=== PATIENT | female | born 1995 | race Caucasian/White ===

== ENCOUNTER 2016-05-11 09:10 | Emergency (ER) | payer OTHER ==
[~2016-05-11] VITALS: Ht 157.5 cm; Wt 110.7 kg
[2016-05-11 09:18] VITALS: TEMP 36.6; Ht 157.5 cm; Wt 110.7 kg
[2016-05-11 10:22] LABS: BASO % 0.1 %; BASO ABS # 0.01 K/uL (0-0.2); COMPLETE YES; EOS % 1.3 %; HEMATOCRIT 41.7 % (37-47); IG% 0.1 %; LYMPH ABS # 2.56 K/uL (1.2-3.4); MEAN CELL VOLUME 81.6 fL (80-100); MEAN CORPUSCULAR HEMOGLOBIN 27.6 pg (25-34); MEAN CORPUSCULAR HGB CONC 33.8 g/dl (32-36); MEAN PLATELET VOLUME 10.5 fL (7.4-10.4); MONO % 6.7 %; NEUT % 60.8 %; PLATELET COUNT 332 K/uL (130-400); RED BLOOD COUNT 5.11 M/uL (4.2-5.4); WHITE BLOOD COUNT 8.27 K/uL (4.8-10.8)
[2016-05-11] MEDS ORDERED: MoRPHine SULFATE 10 MG/ML CARP/VIAL IV STA (10:22)
[2016-05-11] MEDS ORDERED: ONDANSETRON INJ 2 MG/ML 2 ML VIAL IV STA (10:22)
[2016-05-11] MEDS ORDERED: SODIUM CHLORIDE 0.9% 1000ML 1,000 ML IV STA (10:22)
[2016-05-11] MEDS ORDERED: CITA10TA8 PO (10:25)
[2016-05-11] MEDS ORDERED: LEVO125T4 PO (10:25)
[2016-05-11] MEDS ORDERED: BUSP15TA70 PO (10:25)
[2016-05-11 10:29] LABS: URINE APPEARANCE CLEAR (CLEAR); URINE BILIRUBIN NEG (NEG); URINE COLOR YELLOW; URINE EPITHELIAL CELL AUTO 20-30 /lpf (0-5); URINE NITRITE NEG (NEG); URINE SPECIFIC GRAVITY 1.014 (1.000-1.030); UROBILINOGEN NEG (NEG); ZZUR CULT IF INDIC CLEAN CATCH NO
[2016-05-11 10:34] LABS: MANUAL MICROSCOPIC REQUIRED? NO; REVIEW REQ? NO
[2016-05-11 10:43] LABS: BUN/CREATININE RATIO 12.1 (10-20); CALCIUM 8.9 mg/dl (8.5-10.1); CREATININE 0.81 mg/dl (0.60-1.20)
--- NOTE | 2016-05-11 12:59 | DIAGNOSTIC IMAGING REPORT ---
PELVIC ULTRASOUND CLINICAL HISTORY: Lower abdominal pain, cramping and bleeding. COMPARISON STUDY: None TECHNIQUE: Transabdominal and transvaginal sonography of the pelvis was performed. FINDINGS: The uterus measures 6.2 x 3.3 x 3.8 cm. The endometrium measures 4 mm in thickness. The right ovary measures 3.8 x 2.4 x 2.6 cm and the left measures 3.7 x 2 x 2.7 cm. Color flow is identified within each ovary. There was a small amount of fluid within the cul-de-sac. IMPRESSION: 1. Unremarkable sonographic appearance of the uterus and ovaries. 2. Trace fluid within the pelvis. Electronically signed by: Eric Lord M.D. 05/11/2016 12:57 PM
[2016-05-11 13:11] VITALS: BP 123/93; PULSE 62; O2SAT 98
--- NOTE | 2016-05-11 17:13 | EMERGENCY ROOM VISIT NOTE ---
History Report prepared by Franklin: Shana Sloan Under the Supervision of: Dr. Shiva Chapa D.O. First contact with patient: 09:50 Chief Complaint: ABDOMINAL PAIN Stated Complaint: CRAMPING LOWER BACK PAIN ABDOMINAL PAIN Nursing Triage Summary: Abd/low back pain and heavy vaginal bleeding x2 days, last period a few weeks ago, did not have a positive preg test, "I could be miscarrying. I was seen at [facility] 2 days ago and they didn't do anything." History of Present Illness The patient is a 20 year old female who presents to the Emergency Room with complaints of persistent cramping pains to her lower back and suprapubic region over the past 2 days. Currently her pain is worse on the right side, and she rates her discomfort as an 8/10. At the time of onset, the patient also began experiencing heavy vaginal bleeding, going through 1 tampon and 1 pad every hour. This lasted for about a day, but last evening it slowed down and she now has a minimal amount of dark red bleeding. Patient states that she is "2 weeks late for her period", but her last menstrual cycle was early last month. Patient told nursing staff that she "could be miscarrying", but she has not yet taken a test. The patient visited the [facility] ED for her symptoms but states that they were not able to draw blood and they did not do any additional testing before she left. However, as the cramping pains to her lower back and suprapelvic region have persisted, she came to the ED for further evaluation today. Pt denies headache, change in vision, fevers, chest pain, shortness of breath, nausea, vomiting, diarrhea, pain with urination, and melena. Source of History: patient Onset: over the past 2 days Position: abdomen, back (lower) Symptom Intensity: 8/10 Quality: cramping Timing: other (persistent) Associated Symptoms: No SOB, No abdominal pain, No chest pain, No fevers, No melena, No nausea, No urinary symptoms, No vomiting Note: Patient had heavy vaginal bleeding. Review of Systems See HPI for pertinent positives & negatives. A total of 10 systems reviewed and were otherwise negative. Past Medical & Surgical Medical Problems: (1) Depression Surgical Problems: (1) H/O thyroidectomy Social History Smoking Status: Never Smoker Marital Status: single Housing Status: lives with family Occupation Status: employed Current/Historical Medications Scheduled Buspirone Hcl (Buspar), 10 MG PO DAILY Citalopram Hydrobromide (Celexa), 5 MG PO DAILY Levothyroxine Sodium (Levothyroxine Sodium), 1 TAB PO DAILY Allergies Coded Allergies: Metoclopramide (Unverified Allergy, Intermediate, SENSORY SIDE EFFECTS, 05/11/16) Sertraline (Unverified Adverse Reaction, Severe, "ZOMBIE", 05/11/16) Trazodone (Unverified Adverse Reaction, Intermediate, NIGHTMARES, 05/11/16) Physical Exam Vital Signs Date Time Temp Pulse Resp B/P Pulse Ox O2 Delivery O2 Flow Rate FiO2 05/11/16 13:11 62 18 123/93 98 Room Air 05/11/16 10:54 58 16 144/78 99 Room Air 05/11/16 09:18 36.6 80 18 156/110 96 Room Air Physical Exam GENERAL: Patient is laying in bed, disheveled, no acute distress, nontoxic. EYE EXAM: normal conjunctiva. OROPHARYNX: no exudate, no erythema, lips, buccal mucosa, and tongue normal and mucous membranes are moist NECK: supple, no nuchal rigidity, no adenopathy, non-tender LUNGS: Clear to auscultation. Normal chest wall mechanics HEART: no murmurs, S1 normal and S2 normal ABDOMEN: abdomen soft, non-tender, normo-active bowel sounds, no masses, no rebound or guarding. BACK: Back is symmetrical on inspection and there is no deformity, no midline tenderness, no CVA tenderness. : Normal external genitalia. Normal vaginal mucosa. Small amount of dark blood in the vaginal vault. Os is closed. SKIN: no rashes and no bruising UPPER EXTREMITIES: upper extremities are grossly normal. LOWER EXTREMITIES: Scant pitting edema. NEURO EXAM: Normal sensorium, cranial nerves II-XII grossly intact, normal speech, no gross weakness of arms, no gross weakness of legs. Medical Decision & Procedures ER Provider Diagnostic Interpretation: US:Per my review, radiologist interpretation. PELVIC ULTRASOUND CLINICAL HISTORY: Lower abdominal pain, cramping and bleeding. COMPARISON STUDY: None TECHNIQUE: Transabdominal and transvaginal sonography of the pelvis was performed. FINDINGS: The uterus measures 6.2 x 3.3 x 3.8 cm. The endometrium measures 4 mm in thickness. The right ovary measures 3.8 x 2.4 x 2.6 cm and the left measures 3.7 x 2 x 2.7 cm. Color flow is identified within each ovary. There was a small amount of fluid within the cul-de-sac. IMPRESSION: 1. Unremarkable sonographic appearance of the uterus and ovaries. 2. Trace fluid within the pelvis. Electronically signed by: Eric Lord M.D. 05/11/2016 12:57 PM Laboratory Results 05/11/16 10:10 Red Blood Count 5.11, Mean Corpuscular Volume 81.6, Mean Corpuscular Hemoglobin 27.6, Mean Corpuscular Hemoglobin Concent 33.8, Mean Platelet Volume 10.5, Neutrophils (%) (Auto) 60.8, Lymphocytes (%) (Auto) 31.0, Monocytes (%) (Auto) 6.7, Eosinophils (%) (Auto) 1.3, Basophils (%) (Auto) 0.1, Neutrophils # (Auto) 5.03, Lymphocytes # (Auto) 2.56, Monocytes # (Auto) 0.55, Eosinophils # (Auto) 0.11, Basophils # (Auto) 0.01 05/11/16 10:10 Test 05/11/16 10:10 White Blood Count 8.27 K/uL (4.8-10.8) Red Blood Count 5.11 M/uL (4.2-5.4) Hemoglobin 14.1 g/dL (12.0-16.0) Hematocrit 41.7 % (37-47) Mean Corpuscular Volume 81.6 fL (80-100) Mean Corpuscular Hemoglobin 27.6 pg (25-34) Mean Corpuscular Hemoglobin Concent 33.8 g/dl (32-36) Platelet Count 332 K/uL (130-400) Mean Platelet Volume 10.5 fL (7.4-10.4) Neutrophils (%) (Auto) 60.8 % Lymphocytes (%) (Auto) 31.0 % Monocytes (%) (Auto) 6.7 % Eosinophils (%) (Auto) 1.3 % Basophils (%) (Auto) 0.1 % Neutrophils # (Auto) 5.03 K/uL (1.4-6.5) Lymphocytes # (Auto) 2.56 K/uL (1.2-3.4) Monocytes # (Auto) 0.55 K/uL (0.11-0.59) Eosinophils # (Auto) 0.11 K/uL (0-0.5) Basophils # (Auto) 0.01 K/uL (0-0.2) RDW Standard Deviation 40.7 fL (36.4-46.3) RDW Coefficient of Variation 13.6 % (11.5-14.5) Immature Granulocyte % (Auto) 0.1 % Immature Granulocyte # (Auto) 0.01 K/uL (0.00-0.02) Urine Color YELLOW Urine Appearance CLEAR (CLEAR) Urine pH 6.0 (4.5-7.5) Urine Specific [place] 1.014 (1.000-1.030) Urine Protein NEG (NEG) Urine Glucose (UA) NEG (NEG) Urine Ketones NEG (NEG) Urine Occult Blood 3+ (NEG) Urine Nitrite NEG (NEG) Urine Bilirubin NEG (NEG) Urine Urobilinogen NEG (NEG) Urine Leukocyte Esterase NEG (NEG) Urine WBC (Auto) 1-5 /hpf (0-5) Urine RBC (Auto) 10-30 /hpf (0-4) Urine Hyaline Casts (Auto) 0 /lpf (0-5) Urine Epithelial Cells (Auto) 20-30 /lpf (0-5) Urine Bacteria (Auto) NEG (NEG) Urine Test NEG (NEG) Anion Gap 8.0 mmol/L (3-11) Est Creatinine Clear Calc Drug Dose 129.0 ml/min Estimated GFR () 120.3 Estimated GFR (Non- 103.8 BUN/Creatinine Ratio 12.1 (10-20) Calcium Level 8.9 mg/dl (8.5-10.1) Total Bilirubin 0.5 mg/dl (0.2-1) Direct Bilirubin 0.1 mg/dl (0-0.2) Aspartate Amino Transf (AST/SGOT) 10 U/L (15-37) Alanine Aminotransferase (ALT/SGPT) 14 U/L (12-78) Alkaline Phosphatase 85 U/L (45-117) Total Protein 7.4 gm/dl (6.4-8.2) Albumin 4.0 gm/dl (3.4-5.0) Lipase 117 U/L (73-393) Laboratory results per my review. Medications Administered Medications (Trade) Dose Ordered Sig/Arsh Route Start Time Stop Time Status Last Admin Dose Admin Sodium Chloride (Nss 1000ml) 1,000 ml @ 999 mls/hr Q1H1M STAT IV 05/11/16 10:22 05/11/16 11:22 DC 05/11/16 10:55 999 MLS/HR Ondansetron HCl (Zofran Inj) 4 mg NOW STAT IV 05/11/16 10:22 05/11/16 10:24 DC 05/11/16 10:55 4 MG Morphine Sulfate (MoRPHine SULFATE INJ) 6 mg NOW STAT IV 05/11/16 10:22 05/11/16 10:24 DC 05/11/16 10:56 6 MG ED Course ED COURSE: Vital signs were reviewed and showed hypertension. The patients medical record was reviewed: Patient left AMA from the [facility] because they were unable to get blood work. She has an appointment scheduled with her PCP today. The above diagnostic studies were performed and reviewed. ED treatments and interventions as stated above. 1004: The patient was evaluated in room B8. A complete history and physical examination was performed. 1022: Morphine Sulfate 6 mg IV, Zofran 4 mg IV and NSS bolus IV were ordered. 1230: Patient went to US at this time. 1310: A pelvic exam was done at this time without significant results. 1320: I discussed my findings with the patient at this time. Discharge instructions were also discussed. She verbalized her understanding and agreement with the treatment plan, and she is now ready for disposition. Based on the patients age, coexisting illnesses, exam and lab findings the decision to treat as an outpatient was made. The patient remained stable while under my care. The patient appeared well at the time of discharge. Medical Decision Differential diagnoses includes but is not limited to appendicitis, diverticulitis, small bowel obstruction, malignancy, hernia, urinary tract infection, torsion, and ectopic (if female), perforation, trauma, infectious. Patient is a 20-year-old female who presents the ER for 2 days worth of vaginal bleeding and cramping in her lower back. She seen at [facility] but left AMA. She presents today with decreased vaginal bleeding and cramping. She notes she has only gone through 1 pad today. Previously she was going through a pad every hour. She is no other complaints at this time. was negative today and was negative yesterday. CBC shows a stable hemoglobin without significant leukocytosis. BMP along with LFTs, bilirubin and lipase were unremarkable. UA did have blood which I favor secondary to vaginal bleeding. Pelvic ultrasound was unremarkable. Pelvic exam shows a closed cervical os. Last normal menstrual period was early April and favor this is strictly dysfunctional uterine bleeding. Instructed a follow-up with her PCP. She has an appointment set for later today.Discussed with Pt concerning signs and symptoms to watch out for. Pt was instructed to follow up with their PCP and discussed with the patient their option to return to the ED at anytime for persistent or worsening symptoms. The appropriate anticipatory guidance and out- patient management, including indications for return to the emergency department , were explained at length to the patient and understood. Impression Primary Impression: Dysfunctional uterine bleeding Additional Impression: Abdominal cramping Scribe Attestation The scribe's documentation has been prepared under my direction and personally reviewed by me in its entirety. I confirm that the note above accurately reflects all work, treatment, procedures, and medical decision making performed by me. Departure Information Dispostion Home / Self-Care Referrals Dai Riley PA-C (PCP) Forms HOME CARE DOCUMENTATION FORM, IMPORTANT VISIT INFORMATION, My [facility] Patient Instructions A Signature Page Additional Instructions Please follow up with your primary care doctor with in the next 24 hours. Any worsening of your symptoms, please return to the ED immediately. This includes going through more than 1 pad an hour. Passing out, feeling lightheaded or dizzy, worsening pain, fevers greater than 100.4, or any other concerning signs or symptoms from your standpoint. Please take Motrin or Tylenol as needed for pain.
== END 2016-05-11 13:38 | disposition home or self-care (01) ==
LOC: C.EDB 09:14
DX: M54.5 Low back pain (principal); N93.8 Other specified abnormal uterine and vaginal bleeding; R10.9 Unspecified abdominal pain; F32.9 Major depressive disorder, single episode, unspecified; Z98.890 Other specified postprocedural states; Z88.8 Allergy status to other drugs, medicaments and biological substances

== ENCOUNTER 2016-06-27 09:11 | Emergency (ER) | payer OTHER ==
[~2016-06-27] VITALS: Ht 154.9 cm; Wt 112.0 kg
[~2016-06-27 09:11] MED LIST: BUSP15TA70 PO; CITA10TA8 PO; LEVO125T4 PO
[2016-06-27 09:13] VITALS: TEMP 36.5; Ht 154.9 cm; Wt 112.0 kg
[2016-06-27] MEDS ORDERED: CITA10TA8 PO (09:44)
[2016-06-27] MEDS ORDERED: LEVO112T4 PO (09:44)
[2016-06-27] MEDS ORDERED: BUSP-8 PO (09:44)
[2016-06-27] MEDS ORDERED: SODIUM CHLORIDE 0.9% 1000ML 1,000 ML IV STA (10:09)
--- NOTE | 2016-06-27 10:09 | EMERGENCY ROOM VISIT NOTE ---
History Report prepared by Franklin: Xander Pickard Under the Supervision of: Dr. Adan Barker D.O. First contact with patient: 09:39 Chief Complaint: ALLERGIC REACTION Stated Complaint: ALLERGIC REACTION Nursing Triage Summary: Pt presents with c/o allergic rxn- unknown cause. Pt states she had to use an epipen everyday for the past three days, used one today at 0900. Pt states she gets a rash on arm, neck. Seen at [place] and told to f/u with directory compiler. SOB. Initially felt lips tingling and throat felt swollen, denies those sx. Took 50mg Benadryl, prednisone and pepcid this morning. History of Present Illness The patient is a 20 year old female who presents to the Emergency Room with complaints of a recurrent allergic reaction for the past three days. The patient has been experiencing a rash over her arms and chest. She has also experienced tingling of her lips and throat closing. 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 She was wearing gloves at that time. The patient went to [facility] ED, and had epinephrine en route. The source of her reaction was not found. She saw her doctor yesterday, where she was given a steroid injection. The patient went to [place] ED after he doctor's appointment for increased throat swelling, where she had more epinephrine, steroids, and Benadryl. The patient came to the ED today for persistent rash and lip tingling. The patient had 50 mg Benadryl, 20 mg Famotidine, and epinephrine around 0900 this morning. She is scheduled to see an Online Content Editor on . The patient denies eating any new foods or using any new sprayer machine or detergents. The patient takes Levothyroxine s/p thyroidectomy. LNMP one month ago. The patient denies tobacco or alcohol use. Source of History: patient Onset: three days Position: other (global) Quality: other (allergic reaction) Timing: other (recurrent) Modifying Factors (Relieving): other (epinephrine) Associated Symptoms: + rash Review of Systems See HPI for pertinent positives & negatives. A total of 10 systems reviewed and were otherwise negative. Past Medical & Surgical Medical Problems: (1) Depression Surgical Problems: (1) H/O thyroidectomy Family History No pertinent family history Social History Smoking Status: Never Smoker Marital Status: single Housing Status: lives with family Occupation Status: employed Current/Historical Medications Scheduled Buspirone Hcl (Buspirone Hcl), 10 MG PO DAILY Citalopram Hydrobromide (Celexa), 10 MG PO DAILY Levothyroxine Sodium (Levothyroxine Sodium), 112 MCG PO DAILY Allergies Coded Allergies: Metoclopramide (Unverified Allergy, Intermediate, SENSORY SIDE EFFECTS, ) Sertraline (Unverified Adverse Reaction, Severe, "ZOMBIE", 06/27/16) Trazodone (Unverified Adverse Reaction, Intermediate, NIGHTMARES, 06/27/16) Physical Exam Vital Signs Date Time Temp Pulse Resp B/P Pulse Ox O2 Delivery O2 Flow Rate FiO2 06/27/16 12:15 72 23 135/77 99 06/27/16 11:49 72 23 135/77 99 Room Air 06/27/16 10:27 74 20 136/62 96 Room Air 06/27/16 09:27 102 06/27/16 09:13 36.5 87 18 124/63 98 Room Air Physical Exam GENERAL: Patient is awake, alert, and in no acute distress. Patient is resting comfortably and showing no signs of anxiety EYES: The conjunctivae are clear. The pupils are round and reactive. EARS, NOSE, MOUTH AND THROAT: The nose is without any evidence of any deformity. Mucous membranes are moist tongue is midline NECK: The neck is nontender and supple. RESPIRATORY: Normal respiratory effort is noted there is no evidence of wheezing rhonchi or rales CARDIOVASCULAR: Regular rate and rhythm noted there no murmurs rubs or gallops normal S1 normal S2 GASTROINTESTINAL: The abdomen is soft. Bowel sounds are present in all quadrants. Abdomen is nontender MUSCULOSKELETAL/EXTREMITIES: There is no evidence of gross deformity full range of motion is noted in the hips and shoulders SKIN: There is blotching urticarial rash noted across upper extremities and anterior chest. There are no petechiae, pallor or cyanosis noted. NEUROLOGIC: Patient is awake alert and oriented x3. Medical Decision & Procedures ER Provider Diagnostic Interpretation: X-ray results as stated below per interpretation by me and the radiologist. CHEST 2 VIEWS ROUTINE CLINICAL HISTORY: Allergic reaction. COMPARISON STUDY: No previous studies for comparison. FINDINGS: Lung volumes are normal. Lungs are clear. There is no pneumothorax or pleural effusion. Cardiac size is normal. Mediastinal contours are normal. There is no evidence of pulmonary edema. IMPRESSION: No acute cardiopulmonary findings. Electronically signed by: Eric Lord M.D. 06/27/2016 11:37 AM Dictated Date/Time: 06/27/2016 11:36 AM Laboratory Results 06/27/16 10:15 Red Blood Count 5.14, Mean Corpuscular Volume 82.1, Mean Corpuscular Hemoglobin 28.8, Mean Corpuscular Hemoglobin Concent 35.1, Mean Platelet Volume 11.2, Neutrophils (%) (Auto) 88.0, Lymphocytes (%) (Auto) 6.3, Monocytes (%) (Auto) 5.1, Eosinophils (%) (Auto) 0.0, Basophils (%) (Auto) 0.0, Neutrophils # (Auto) 22.15, Lymphocytes # (Auto) 1.59, Monocytes # (Auto) 1.28, Eosinophils # (Auto) 0.00, Basophils # (Auto) 0.01 06/27/16 10:15 Test 06/27/16 10:15 06/27/16 10:20 White Blood Count 25.17 K/uL (4.8-10.8) Red Blood Count 5.14 M/uL (4.2-5.4) Hemoglobin 14.8 g/dL (12.0-16.0) Hematocrit 42.2 % (37-47) Mean Corpuscular Volume 82.1 fL (80-100) Mean Corpuscular Hemoglobin 28.8 pg (25-34) Mean Corpuscular Hemoglobin Concent 35.1 g/dl (32-36) Platelet Count 416 K/uL (130-400) Mean Platelet Volume 11.2 fL (7.4-10.4) Neutrophils (%) (Auto) 88.0 % Lymphocytes (%) (Auto) 6.3 % Monocytes (%) (Auto) 5.1 % Eosinophils (%) (Auto) 0.0 % Basophils (%) (Auto) 0.0 % Neutrophils # (Auto) 22.15 K/uL (1.4-6.5) Lymphocytes # (Auto) 1.59 K/uL (1.2-3.4) Monocytes # (Auto) 1.28 K/uL (0.11-0.59) Eosinophils # (Auto) 0.00 K/uL (0-0.5) Basophils # (Auto) 0.01 K/uL (0-0.2) RDW Standard Deviation 42.8 fL (36.4-46.3) RDW Coefficient of Variation 14.2 % (11.5-14.5) Immature Granulocyte % (Auto) 0.6 % Immature Granulocyte # (Auto) 0.14 K/uL (0.00-0.02) Hypersegmented Polys 1+ Large Platelets 1+ Anion Gap 11.0 mmol/L (3-11) Est Creatinine Clear Calc Drug Dose 111.0 ml/min Estimated GFR () 101.8 Estimated GFR (Non- 87.9 BUN/Creatinine Ratio 14.5 (10-20) Calcium Level 9.2 mg/dl (8.5-10.1) Total Bilirubin 0.4 mg/dl (0.2-1) Direct Bilirubin < 0.1 mg/dl (0-0.2) Aspartate Amino Transf (AST/SGOT) 7 U/L (15-37) Alanine Aminotransferase (ALT/SGPT) 14 U/L (12-78) Alkaline Phosphatase 81 U/L (45-117) Total Protein 7.7 gm/dl (6.4-8.2) Albumin 3.9 gm/dl (3.4-5.0) Lipase 113 U/L (73-393) Human Chorionic Gonadotropin, Qual NEG (NEG) Urine Color YELLOW Urine Appearance CLEAR (CLEAR) Urine pH 7.0 (4.5-7.5) Urine Specific [place] 1.011 (1.000-1.030) Urine Protein NEG (NEG) Urine Glucose (UA) NEG (NEG) Urine Ketones NEG (NEG) Urine Occult Blood NEG (NEG) Urine Nitrite NEG (NEG) Urine Bilirubin NEG (NEG) Urine Urobilinogen NEG (NEG) Urine Leukocyte Esterase TRACE (NEG) Urine WBC (Auto) 1-5 /hpf (0-5) Urine RBC (Auto) 0-4 /hpf (0-4) Urine Hyaline Casts (Auto) 1-5 /lpf (0-5) Urine Epithelial Cells (Auto) 20-30 /lpf (0-5) Urine Bacteria (Auto) NEG (NEG) Laboratory results per my review. Medications Administered Medications (Trade) Dose Ordered Sig/Arsh Route Start Time Stop Time Status Last Admin Dose Admin Sodium Chloride (Nss 1000ml) 1,000 ml @ 999 mls/hr Q1H1M STAT IV 06/27/16 10:09 06/27/16 11:09 DC 06/27/16 10:19 999 MLS/HR Dexamethasone Sodium Phosphate (Decadron Inj) 10 mg NOW ONCE IV 06/27/16 10:15 06/27/16 10:16 DC 06/27/16 10:19 10 MG ED Course 0948: The patient was evaluated in room B8. A complete history and physical examination were performed. 1009: NSS 1000 ml @ 999 mls/hr. 1015: Decadron 10 mg IV. 1145: Reassessed the patient. I discussed the results and treatment plan with her. She verbalized agreement of the treatment plan. She was discharged home. Medical Decision Prior records/ancillary studies reviewed. Triage Nursing notes reviewed. The patient's history was concerning for possible allergic reaction. Differential diagnosis: Etiologies such as allergic reaction, anaphylaxis, urticaria, House-Reginaldo syndrome, toxic epidermal necrolysis, erythema multiforme, cellulitis, as well as others were entertained. The patient is a 20-year-old female who presented to the emergency department for an evaluation of allergic reaction. The patient has been having problems with urticaria and allergic reaction recently. She's had using EpiPen recently. The patient has been placed on the proper medications but did not get her prescription for prednisone filled yet. The patient was treated with IV fluids and IV steroids. She had already taken antihistamines. I discussed the patient' s laboratory results with her. She was found have a very elevated white blood cell count which I feel this is likely due to the patient's recent epinephrine use and her steroid use. The patient was reevaluated multiple times. The patient was encouraged to rest and avoid any strenuous activity. She was also encouraged to follow-up with the directory compiler as scheduled. She was also encouraged to continue all medications as prescribed and return to the emergency apartment immediately if symptoms change worsen or the need arises. Impression Primary Impression: Allergic reaction Additional Impression: Urticaria Scribe Attestation The scribe's documentation has been prepared under my direction and personally reviewed by me in its entirety. I confirm that the note above accurately reflects all work, treatment, procedures, and medical decision making performed by me. Departure Information Dispostion Home / Self-Care Referrals Dai Riley PA-C (PCP) Forms HOME CARE DOCUMENTATION FORM, IMPORTANT VISIT INFORMATION, Work Instructions Patient Instructions ED Allergic Reaction General Other, First Aid Allergic React, My [facility] Additional Instructions Continue all medications as prescribed. Follow-up with the directory compiler as scheduled. Return to the emergency department immediately if symptoms change worsen or the need arises. Problem Qualifiers
[2016-06-27] MEDS ORDERED: DEXAMETHASONE SOD INJ 10 MG/ML VIAL IV ONE (10:15)
[2016-06-27 10:30] LABS: HEMATOCRIT 42.2 % (37-47); MEAN CELL VOLUME 82.1 fL (80-100); MEAN CORPUSCULAR HEMOGLOBIN 28.8 pg (25-34); MEAN CORPUSCULAR HGB CONC 35.1 g/dl (32-36); MEAN PLATELET VOLUME 11.2 fL (7.4-10.4); PLATELET COUNT 416 K/uL (130-400); RED BLOOD COUNT 5.14 M/uL (4.2-5.4); WHITE BLOOD COUNT 25.17 K/uL (4.8-10.8)
[2016-06-27 10:47] LABS: BASO ABS # 0.01 K/uL (0-0.2); COMPLETE YES; HYPERSEGMENTED POLYS 1+; IG% 0.6 %; LARGE PLATELETS 1+; LYMPH % 6.3 %; LYMPH ABS # 1.59 K/uL (1.2-3.4); MONO % 5.1 %
[2016-06-27 10:51] LABS: ALT/SGPT 14 U/L (12-78); BLOOD UREA NITROGEN 14 mg/dl (7-18); BUN/CREATININE RATIO 14.5 (10-20); CALCIUM 9.2 mg/dl (8.5-10.1); CARBON DIOXIDE 22 mmol/L (21-32); CHLORIDE 106 mmol/L (98-107); CREATININE 0.93 mg/dl (0.60-1.20); GLUCOSE 143 mg/dl (70-99); SODIUM 139 mmol/L (136-145)
[2016-06-27 10:52] LABS: URINE APPEARANCE CLEAR (CLEAR); URINE BILIRUBIN NEG (NEG); URINE COLOR YELLOW; URINE EPITHELIAL CELL AUTO 20-30 /lpf (0-5); URINE NITRITE NEG (NEG); URINE SPECIFIC GRAVITY 1.011 (1.000-1.030); UROBILINOGEN NEG (NEG)
[2016-06-27 10:54] LABS: ALKALINE PHOSPHATASE 81 U/L (45-117); AST/SGOT 7 U/L (15-37); PREG INTERNAL NEGATIVE QC NEG CLEAR BACKGROUND; PREG INTERNAL POSITIVE QC POS CONTROL LINE
[2016-06-27 10:55] LABS: MANUAL MICROSCOPIC REQUIRED? NO; REVIEW REQ? NO
--- NOTE | 2016-06-27 11:38 | DIAGNOSTIC IMAGING REPORT ---
CHEST 2 VIEWS ROUTINE CLINICAL HISTORY: Allergic reaction. COMPARISON STUDY: No previous studies for comparison. FINDINGS: Lung volumes are normal. Lungs are clear. There is no pneumothorax or pleural effusion. Cardiac size is normal. Mediastinal contours are normal. There is no evidence of pulmonary edema. IMPRESSION: No acute cardiopulmonary findings. Electronically signed by: Eric Lord M.D. 06/27/2016 11:37 AM Dictated Date/Time: 06/27/2016 11:36 AM
[2016-06-27 12:15] VITALS: BP 135/77; PULSE 72; O2SAT 99
== END 2016-06-27 12:29 | disposition home or self-care (01) ==
LOC: C.EDB 09:11
DX: T78.40XA Allergy, unspecified, initial encounter (principal); L50.9 Urticaria, unspecified; F32.9 Major depressive disorder, single episode, unspecified; X58.XXXA Exposure to other specified factors, initial encounter

== ENCOUNTER → 2016-07-20 | Outpatient (CLI) | payer OTHER ==
[~2016-07-20] MED LIST changes: +BUSP-8 PO; -BUSP15TA70 PO; +LEVO112T4 PO; -LEVO125T4 PO
[2016-07-20 12:09] LABS: BASO % 0.1 %; BASO ABS # 0.01 K/uL (0-0.2); COMPLETE YES; EOS % 0.7 %; IG% 0.3 %; LYMPH % 20.7 %; LYMPH ABS # 2.02 K/uL (1.2-3.4); MEAN CELL VOLUME 83.7 fL (80-100); MEAN CORPUSCULAR HEMOGLOBIN 28.5 pg (25-34); MEAN PLATELET VOLUME 10.6 fL (7.4-10.4); MONO % 4.7 %; NEUT % 73.5 %; PLATELET COUNT 363 K/uL (130-400); RED BLOOD COUNT 4.78 M/uL (4.2-5.4); WHITE BLOOD COUNT 9.77 K/uL (4.8-10.8)
[2016-07-22 11:27] LABS: ANAPLASMA PHAGOCYTOPHIL IGG <1:64 (<1:64); ANAPLASMA PHAGOCYTOPHIL IGM <1:20 (<1:20); EHRLICHIA CHAFF IGG AB <1:64 (<1:64); EHRLICHIA CHAFF IGM AB <1:20 (<1:20)
[2016-07-25 05:33] LABS: 18KDIGG BAND NONREACTIVE (NONREACTIVE); 23KDIGG BAND NONREACTIVE (NONREACTIVE); 23KDIGM BAND REACTIVE (NONREACTIVE); 28KDIGG BAND NONREACTIVE (NONREACTIVE); 30KDIGG BAND NONREACTIVE (NONREACTIVE); 39KDIGG BAND NONREACTIVE (NONREACTIVE); 39KDIGM BAND NONREACTIVE (NONREACTIVE); 41KDIGG BAND NONREACTIVE (NONREACTIVE); 41KDIGM BAND NONREACTIVE (NONREACTIVE); 45KDIGG BAND NONREACTIVE (NONREACTIVE); 58KDIGG BAND NONREACTIVE (NONREACTIVE); 66KDIGG BAND NONREACTIVE (NONREACTIVE); 93KDIGG BAND NONREACTIVE (NONREACTIVE)
== END | disposition home or self-care (01) ==
LOC: C.LAB1850 11:17
PROVIDERS: ATTEND Internal Medicine Infectious Disease
DX: R51 Headache (principal)

== ENCOUNTER 2020-12-29 13:53 | Inpatient (IN) ==
[2020-12-29] MEDS ORDERED: LACTATED RINGER'S 1,000 ML IV PRN (15:18)
[2020-12-29] MEDS ORDERED: CITRIC ACID/SODIUM CITRATE 15 ML UDC PO SCH (17:00)
--- NOTE | 2020-12-29 17:13 | History and Physical Report ---
DATE OF NOTE: 12/29/2020. CHIEF COMPLAINT: Contractions, intrauterine 36 weeks 3 days, two prior sections. HISTORY OF PRESENT ILLNESS: The patient is a 25-year-old 3, para 2. She has become an insul in-dependent diabetic during this . She takes insulin at night. When she is not , s he does not take any diabetic meds. She is well dated with a first trimester ultrasound. Her due da te is 01/23/2021. She was on aspirin daily and it was stopped 2 weeks ago and she is on levothyroxin e. She has had her thyroid removed and levels have been checked regularly. Her obstetrical history is as follows: In 2018, she had a boy, 7 pounds 12 ounces, 38 week s 6 days. Failed induction of labor. Her cervix never dilated. In 2019, she went into active labor at about 37 weeks, they tried to stop her then eventually ended up repeating , was 8 pounds 6 ounces, once again the cervix never dilated. States she has been having contractions since 9:00 a.m . this morning coming every 2-3 minutes. They are getting stronger. She called about 1 or 2 o'clock in the afternoon, was told to come in for evaluation. PAST MEDICAL HISTORY: She has 2 children in good health. ALLERGIES: SHE IS ALLERGIC TO REGLAN, TRAZODONE, ZOLOFT. PAST SURGICAL HISTORY: She has had 2 C-sections. She has had three umbilical hernia repairs. She h ad a gallbladder removed. She had T and A and she had her thyroid removed in two separate procedures . She has 2 children in good health. MEDICAL HISTORY: She is hypothyroid. Since she had her thyroid removed, she is on thyroid replacemen t. SOCIAL HISTORY: She is not a smoker. No excessive alcohol intake. She is axuv-hu-ozfe mom. FAMILY HISTORY: Mother is 45 in good health. Father 46 in good health. One brother and one sister in good health. REVIEW OF SYSTEMS: She does have a history of migraine headaches. No symptoms of frequent or severe bladder infections. PHYSICAL EXAMINATION: GENERAL: Well-developed, well-nourished 25-year-old female, alert, oriented x3, and cooperative, in no acute distress, appeared her stated age. HEENT: Eyes, conjunctivae pink. Sclerae white, no evidence of jaundice. Ears had normal light refl ex bilaterally. Nose had normal mucosa. Septum is midline. There were no polyps. Throat, no eryth sandhya or evidence of infection. Teeth are in good state of repair. Head was normocephalic, normal dis tribution of hair. NECK: Supple. Trachea midline. Thyroid is not enlarged. There is no adenopathy appreciated. Both carotids are of good intensity. CHEST: Clear to auscultation and percussion, no wheezes, rales or rhonchi appreciated. HEART: Had regular rhythm. S1 and S2 are normal. ABDOMEN: Revealed a gravid uterus, term size uterus. There was umbilical scar and there was a well- healed Pfannenstiel scar. MUSCULOSKELETAL: Examination revealed no calf tenderness. PELVIC: Revealed vertex presentation at about a -2 station. Cervix was posterior and closed. IMPRESSIONS OF THIS CASE: Status post 2 previous C-sections, status post 3 umbilical hernia repairs, status post gallbladder removal, status post T and A, status post 2 surgeries, just insulin-dependen t gestational diabetes. Intrauterine 36 weeks 3 days, premature labor. Job ID: [id number]
[2020-12-29] MEDS ORDERED: LACTATED RINGER'S 1,000 ML IV SCH ×2 (17:45→20:45)
[2020-12-29] MEDS ORDERED: LACTATED RINGER'S 500 ML IV PRN (17:55)
[2020-12-29] MEDS ORDERED: NALOXONE HCL 0.4 MG/1 ML VIAL/CARP IV PRN (17:55)
[2020-12-29] MEDS ORDERED: ePHEDrine sulfate 50 MG/ML AMP IV PRN (17:55)
[2020-12-29] MEDS ORDERED: NALOXONE HCL 0.08 MG in SYRINGE 1.8 ML IV PRN (17:55)
[2020-12-29] MEDS ORDERED: NALOXONE HCL 1 MG in SODIUM CHLORIDE 0.9% 1000ML 1,000 ML IV PRN (17:55)
[2020-12-29] MEDS ORDERED: NALBUPHINE HCL INJ 10 MG/ML AMP IV PRN (17:55)
[2020-12-29] MEDS ORDERED: MoRPHine SULFATE PF 1 MG/ML 10 ML AMP/VIAL INT SPINAL ONE (17:55)
[2020-12-29] MEDS ORDERED: ONDANSETRON INJ 2 MG/ML 2 ML VIAL IV PRN (17:55)
[2020-12-29] MEDS ORDERED: diphenhydrAMINE 50 MG/ML VIAL IV PRN (17:55)
--- NOTE | 2020-12-29 17:55 | Anesthesiology Consultation ---
Date of Service December 29, 2020 Assessment & Plan ASA ASA3 Proposed Anesthesia Anesthesia Type: Spinal Risk / Benefits Reviewed With: PT / POA / Parent / Guardian, Accepts Plan and Informed Consent Obtained History Surgery Operation Date: 12/29/20 19:00 Proposed Procedures p Section in LD(Bilateral) - Eddie Bryan MD Height/Weight Height: 5 ft 2 in Weight: 137.892 kg Allergies Allergy/AdvReac Type Severity Reaction Status Date / Time sertraline AdvReac Severe "ZOMBIE-LIKE" Verified 12/29/20 14:32 FEELING metoclopramide AdvReac Intermediate "SENSORY" Verified 12/29/20 14:32 SIDE EFFECTS trazodone AdvReac Intermediate NIGHTMARES Verified 12/29/20 14:32 Medications Home Medications Medication Instructions Recorded Confirmed Last Taken albuterol sulfate 90 mcg/actuation 2 puff INHALATION Q4 PRN 11/15/18 12/29/20 Unknown aerosol inhaler (Ventolin HFA) epinephrine 0.3 mg/0.3 mL 0.3 mg IM UD PRN 11/15/18 12/29/20 Unknown injection, auto-injector levothyroxine 200 mcg tablet 225 mcg PO DAILY 11/06/19 12/29/20 12/29/20 08:00 insulin glargine 100 unit/mL (3 28 unit SUBCUT PM 12/29/20 12/29/20 12/28/20 mL) subcutaneous pen (Lantus 28 units Solostar U-100 Insulin) Active Medications Generic Name Dose Route Start Last Admin Trade Name Freq PRN Reason Stop Dose Admin Lactated Ringer's 1,000 mls @ 125 mls/hr 12/29/20 15:18 12/29/20 15:28 Lr IV 01/28/21 15:17 125 mls/hr .Q8H PRN Administration L&D Protocol Protocol Past Medical History Medical History ADHD Asthma Bipolar disorder Depression Hepatic steatosis History of thyroid cancer papillary s/p thyroidectomy HTN (hypertension) Iron deficiency Post-surgical hypothyroidism Rheumatoid arthritis Exercise / Class Metabolic Activity II 4-5 Yardwork/Stairs/Walk up hill Past Surgical History Surgical History (Updated 12/29/20 @ 14:33 by Leela Andujar RN) History of adenoidectomy History of delivery X2 LAST ONE WAS JUST ONE MONTH AGO 10/2018 History of thyroid surgery partial thyroidectomy; subsequent total thyroidectomy History of umbilical hernia repair Hx laparoscopic cholecystectomy Past Anesthesia History No Hx of Anesthesia Complications and No Family Hx of Anesthesia Complications History of PONV No Hx of PONV and No Hx of Motion Sickness Social History Smoking Status: Never smoker Hx Alcohol Use: No Hx Substance Use: No substance use type: does not use Review of Systems denies fever/cough/ colds/ chest pain/ SOB/ MENDOZA denies MENDOZA Physical Exam Vital Signs Last Vital Signs Temp 36.6 C 12/29/20 15:30 Pulse 106 H 12/29/20 15:29 Resp 18 12/29/20 15:30 BP 123/62 12/29/20 15:29 ENMT Mouth: no TMJ abnormality and no dentition abnormality Thyromental Distance: > or= 3.5 Finger Breadths Mallampati Class: II Neck neck extension not limited Respiratory normal respiratory effort; no respiratory distress Auscultation: lungs clear to auscultation bilaterally Cardiovascular Rate/Rhythm: regular rate and regular rhythm Neurologic moves all extremities Psychiatric Orientation: alert and oriented x 3 Testing Laboratory Results 12/29/20 15:26 POC Glucose 80
[2020-12-29] MEDS ORDERED: SODIUM CHLORIDE 0.9% 1000ML 1,000 ML IV SCH (18:00)
[2020-12-29] MEDS ORDERED: NO NARCOTICS OR SEDATIVES SCH (18:00)
[2020-12-29] MEDS ORDERED: cefOXitin 2,000 MG in DEXTROSE 5% 50 ML IV SCH (18:00)
[2020-12-29] MEDS ORDERED: OXYTOCIN 10 UNITS/ML VIAL ONE (18:05)
[2020-12-29] MEDS ORDERED: MoRPHine SULFATE PF 1 MG/ML 10 ML AMP/VIAL ONE (18:05)
[2020-12-29] MEDS ORDERED: fentaNYL citrate 100 MCG/2 ML VIAL ONE (18:05)
[2020-12-29 18:48] LABS: Hematocrit (blood only) 36.9 % (37-47); Hemoglobin 12.7 g/dL (12.0-16.0); Mean Corpuscular Hemoglobin 29.1 pg (25-34); Mean Corpuscular Volume 84.4 fL (80-100); Mean Platelet Volume 11.7 fL (7.4-10.4); Platelet Count 231 K/uL (130-400); RDW Coefficient of Variation 13.5 % (11.5-14.5); RDW Standard Deviation 40.9 fL (36.4-46.3); Red Blood Count 4.37 M/uL (4.2-5.4); White Blood Count 10.95 K/uL (4.8-10.8)
[2020-12-29 18:54] LABS: Mean Corpuscular Hgb Conc 34.4 g/dL (32-36)
[2020-12-29] MEDS ORDERED: PHENYLEPHRINE 100MCG/ML 5ML SYR ONE (19:44)
[2020-12-29] MEDS ORDERED: ePHEDrine sulfate 50 MG/ML SYR ONE (19:44)
[2020-12-29] MEDS ORDERED: ONDANSETRON INJ 2 MG/ML 2 ML VIAL ONE (19:52)
[2020-12-29] MEDS ORDERED: METHYLERGONOVINE MALEATE 0.2 MG/ML AMP ONE (19:54)
--- NOTE | 2020-12-29 20:35 | Post Operative Brief Note ---
Immediate Post Op Note v1 Date of Surgery December 29, 2020 Pre & Post Diagnosis Operation Date: 12/29/20 19:00 Pre-Op Diagnosis: 1. Previous c section 2. Labor Post-Op Diagnosis: Same; Delivery of a live child at ( Main OR 3) I identified the patient and participated in the time-out.: Yes Procedure Operation Date: 12/29/20 19:00 Actual Procedures p Section in LD(Bilateral) - Eddie Bryan MD Surgeon Eddie Bryan MD Dramatic Reader Dr Maldonado Estimated Blood Loss 900 Findings Consistent with Post-Op Diagnosis Drains Peck Catheter Anesthesia Type Spinal Disposition Disposition: Recovery Room
[2020-12-29] MEDS ORDERED: SENNA 8.6 MG TAB PO PRN (20:36)
[2020-12-29] MEDS ORDERED: HYDROCORTISONE ACETATE 25 MG SUPP PR PRN (20:36)
[2020-12-29] MEDS ORDERED: DIPHTHERIA/TETANUS/PERTUSSIS 0.5 ML SYR/VIAL IM ONE (20:36)
[2020-12-29] MEDS ORDERED: BENZOCAINE 20% AER SPR 82.5 GM CAN EXT PRN (20:36)
[2020-12-29] MEDS ORDERED: SUPERCREAM 0.870% 15 GM JAR EXT PRN (20:36)
[2020-12-29] MEDS ORDERED: MAGNESIUM HYDROXIDE SUSP 30 ML UDC PO PRN (20:36)
--- NOTE | 2020-12-29 21:05 | Anesthesiology Progress Note ---
Date of Service December 29, 2020 Anesthesia Post Procedure Vital Signs Vital Signs: Temp Pulse Resp BP Pulse Ox 12/29/20 21:03 94 H 98 12/29/20 21:01 96 H 135/77 12/29/20 20:58 96 H 96 12/29/20 20:53 77 96 12/29/20 20:52 82 93 12/29/20 20:50 94 H 143/79 H 12/29/20 20:48 93 H 96 12/29/20 20:47 87 136/75 12/29/20 20:44 90 135/79 12/29/20 20:43 94 H 96 12/29/20 15:30 36.6 C 18 12/29/20 15:29 106 H 123/62 12/29/20 14:11 36.7 C 20 12/29/20 14:05 117 H 139/77 Transfer of Care Handoff Completed per policy Notes Mental Status: alert / awake / arousable and participated in evaluation Patient Amnestic to Procedure: Yes Nausea / Vomiting: adequately controlled Pain: adequately controlled Airway Patency, RR, SpO2: stable & adequate BP & HR: stable & adequate Hydration State: stable & adequate Anesthetic Complications: no major complications apparent and Pt Satisfied with anesthetic care
[2020-12-29] MEDS: KETOROLAC 30 MG/ML VIAL IV PRN (22:12)
--- NOTE | 2020-12-29 22:41 | Operative Report (OR) ---
Mrs. Luna is 3, para 3. PREOPERATIVE DIAGNOSIS: Intrauterine , active labor, 36 weeks 3 days gestation. POSTOPERATIVE DIAGNOSIS: Intrauterine , active labor, 36 weeks 3 days gestation. Delivered live female infant. SURGEON: Devin Bryan MD ELECTRONICS DETAIL DRAFTSPERSON: Sharath Maldonado MD PROCEDURE: Repeat low segment section. ANESTHESIA: Spinal. ESTIMATED BLOOD LOSS: 800 mL. OPERATIVE FINDINGS AND PROCEDURE: The patient was brought to the OR table, correctly identified by a rmband and conversation. Spinal anesthesia was administered. A Peck catheter was inserted into the bladder, connected to gravity drainage. Compression stockings were applied. The abdominal pannus w as taped up with two large wide tapes exposing the Pfannenstiel scar. The area was prepped with an a lcohol based sterilizing solution twice, draped in the usual sterile manner. Three minutes were allo wed to before we draped. Then we draped in the usual sterile fashion. The adequacy of the an esthesia was checked. The Pfannenstiel incision was made through a previous scar. The incision was carried down to the anterior fascia by sharp dissection. Hemostasis was secured by electrocauteriza tion. Fascia was incised transversely the underlying muscle. The recti muscles were sepa rated in the midline. Peritoneum was carefully raised and entered. A retractor was placed into the abdomen to expose the lower uterine segment. Some of the lower uterine segment was very vascular abo ve the bladder, so we went above that, the vascular area. I nicked the uterus with a knife and then entered bluntly with scissors. Clear amniotic fluid was seen at this time. I extended the incision laterally. Vectis retractor was placed in the uterus and then with fundal pressure a live female inf ant was delivered. I stripped the cord blood, then clamped and cut the cord, and the was atte nded to by the drug abuse worker, Dr. Méndez, who was scrubbed and present at delivery. Cord blood was taken. Placenta was removed manually. Uterus, tubes, and ovary were brought out through the incisio n. The myometrial layer was approximated with a continuous heavy chromic gut suture. A isryxn-ov-kk ght chromic gut suture was placed on the left side due to bleeding. Then the fascial layer was appro ximated over this with a heavy duty Vicryl and about three interrupted ualhjw-wo-rbkur sutures of Sandoval ryl were used on the incision line to complete the hemostatic process. Following this, hemostasis wa s excellent. Pelvis was cleansed of all blood clots and debris. Uterus, tubes, and ovaries were kaiden nserted into the incision. Hemostasis was good. The suture was cut. There was some omentum adheren t to the anterior abdominal wall. This was taken down and normal anatomy was restored. Careful thea omical approximation of the anterior abdominal wall was performed. The peritoneum was closed in a ma ttress suture of chromic catgut. Recti muscles were approximated with interrupted bgtzpq-ua-txoed castaneda ture chromic catgut. Fascia was closed with continuous interlocking suture of Vicryl on each side an d tied in the midline. Subcutaneous was approximated with a running plain and skin edges were approx imated with staple clips. The CIELO dressing was then applied. Job ID: [id number]
[2020-12-29] MEDS: OXYTOCIN 20 UNITS in LACTATED RINGER'S 1,000 ML IV SCH (22:59)
[2020-12-30] MEDS: MoRPHine SULFATE 2 MG/ML CARP IV PRN ×3 (02:01→11:28)
[2020-12-30] MEDS: SIMETHICONE 80 MG CHEW PO SCH ×5 (03:20→21:03)
[2020-12-30] MEDS: DOCUSATE SODIUM 100 MG CAP PO SCH ×3 (03:20→21:03)
[2020-12-30] MEDS: KETOROLAC 30 MG/ML VIAL IV PRN ×2 (03:30→09:41)
[2020-12-30] MEDS: LEVOTHYROXINE SODIUM 75 MCG TABLET PO SCH (06:07)
[2020-12-30] MEDS: OXYTOCIN 20 UNITS in LACTATED RINGER'S 1,000 ML IV SCH ×2 (06:41→15:16)
[2020-12-30 06:44] LABS: Basophils # (auto) 0.01 K/uL (0-0.2); Basophils % (auto) 0.1 %; Eosinophils # (auto) 0.03 K/uL (0-0.5); Eosinophils % (auto) 0.3 %; Hemoglobin 11.1 g/dL (12.0-16.0); Immature Granulocytes # (auto) 0.02 K/uL (0.00-0.02); Immature Granulocytes % (auto) 0.2 %; Lymphocytes # (auto) 1.72 K/uL (1.2-3.4); Lymphocytes % (auto) 18.5 %; Mean Corpuscular Hemoglobin 29.6 pg (25-34); Mean Corpuscular Hgb Conc 34.7 g/dL (32-36); Mean Corpuscular Volume 85.3 fL (80-100); Mean Platelet Volume 11.3 fL (7.4-10.4); Monocytes # (auto) 0.53 K/uL (0.11-0.59); Monocytes % (auto) 5.7 %; Neutrophils # (auto) 6.97 K/uL (1.4-6.5); Neutrophils % (auto) 75.2 %; Platelet Count 198 K/uL (130-400); RDW Coefficient of Variation 13.4 % (11.5-14.5); Red Blood Count 3.75 M/uL (4.2-5.4); White Blood Count 9.28 K/uL (4.8-10.8)
[2020-12-30] MEDS: FERROUS SULFATE 325 MG TAB PO SCH (07:58)
[2020-12-30] MEDS: PRENATAL VITAMIN 1 TAB PO SCH (07:58)
--- NOTE | 2020-12-30 08:31 | Obstetrical Progress Note ---
Date of Service December 30, 2020 Assessment & Plan Admission and Anticipated Discharge Date Admission Date: December 29, 2020 Subjective Patient is seen and examined. She feels well, no complaints. Pain is under control with oral meds. Not OOB yet Tolerating clear diet with out N&V Flatus + BM neg Bleeding is minimal No fever/ chills/ CP/ SOB/ N&V/ Leg pain Baby was transferred to [facility] Vital Signs Temp Pulse Pulse Resp BP BP Pulse Ox 12/30/20 06:00 18 99 12/30/20 05:00 18 99 12/30/20 04:00 36.6 C 74 18 117/76 100 12/30/20 03:00 18 100 12/30/20 02:00 20 100 12/30/20 01:30 76 18 122/74 100 12/30/20 00:59 20 100 12/30/20 00:00 18 99 12/29/20 23:40 36.4 C L 94 H 18 120/76 97 12/29/20 22:57 88 142/75 H 97 12/29/20 22:51 79 96 12/29/20 22:50 18 12/29/20 22:46 90 89 L 12/29/20 22:42 85 153/76 H 12/29/20 22:41 84 97 12/29/20 22:34 100 H 93 12/29/20 22:32 85 L 12/29/20 22:28 86 93 12/29/20 22:27 79 150/72 H 12/29/20 22:20 18 12/29/20 22:18 89 100 12/29/20 22:13 88 162/94 H 89 L 12/29/20 22:08 92 H 93 12/29/20 22:06 105 H 89 L 12/29/20 22:03 96 H 86 L 12/29/20 22:00 85 86 L 12/29/20 21:58 79 95 12/29/20 21:53 81 92 12/29/20 21:51 85 89 L 12/29/20 21:50 36.6 C 77 18 140/70 12/29/20 21:48 85 92 12/29/20 21:43 89 94 12/29/20 21:40 80 18 141/71 H 12/29/20 21:38 77 94 12/29/20 21:33 84 94 12/29/20 21:30 85 18 138/74 12/29/20 21:28 93 H 89 L 12/29/20 21:23 89 97 12/29/20 21:20 102 H 137/80 12/29/20 21:18 88 96 12/29/20 21:16 86 92 12/29/20 21:13 89 96 12/29/20 21:10 90 18 136/80 12/29/20 21:08 97 H 98 12/29/20 21:03 94 H 98 12/29/20 21:01 96 H 135/77 12/29/20 21:00 18 12/29/20 20:58 96 H 96 12/29/20 20:53 77 96 12/29/20 20:52 82 93 12/29/20 20:50 36.4 C L 94 H 18 143/79 H 12/29/20 20:48 93 H 96 12/29/20 20:47 87 136/75 12/29/20 20:44 90 135/79 12/29/20 20:43 94 H 96 Lab Results 12/29/20 12/29/20 12/29/20 Range/Units 15:26 17:46 17:46 WBC (4.8-10.8) K/uL RBC (4.2-5.4) M/uL Hgb (12.0-16.0) g/dL Hct (37-47) % MCV (80-100) fL MCH (25-34) pg MCHC (32-36) g/dL RDW Std Deviation (36.4-46.3) fL RDW Coeff of Paulino (11.5-14.5) % Plt Count (130-400) K/uL MPV (7.4-10.4) fL Immature Gran % (Auto) % Neut % (Auto) % Lymph % (Auto) % [place] % (Auto) % Eos % (Auto) % Baso % (Auto) % Neut # (Auto) (1.4-6.5) K/uL Lymph # (Auto) (1.2-3.4) K/uL [place] # (Auto) (0.11-0.59) K/uL Eos # (Auto) (0-0.5) K/uL Baso # (Auto) (0-0.2) K/uL Immature Gran # (Auto) (0.00-0.02) K/uL POC Glucose 80 (70-99) mg/dl COVID-19 Eval Order Covid19 IDNow [facility] SARS-CoV-2, RNA, NAAT NEGATIVE (NEGATIVE) Blood Type Antibody Screen 12/29/20 12/29/20 12/29/20 Range/Units 18:05 18:05 19:00 WBC 10.95 H (4.8-10.8) K/uL RBC 4.37 (4.2-5.4) M/uL Hgb 12.7 (12.0-16.0) g/dL Hct 36.9 L (37-47) % MCV 84.4 (80-100) fL MCH 29.1 (25-34) pg MCHC 34.4 (32-36) g/dL RDW Std Deviation 40.9 (36.4-46.3) fL RDW Coeff of Paulino 13.5 (11.5-14.5) % Plt Count 231 (130-400) K/uL MPV 11.7 H (7.4-10.4) fL Immature Gran % (Auto) % Neut % (Auto) % Lymph % (Auto) % [place] % (Auto) % Eos % (Auto) % Baso % (Auto) % Neut # (Auto) (1.4-6.5) K/uL Lymph # (Auto) (1.2-3.4) K/uL [place] # (Auto) (0.11-0.59) K/uL Eos # (Auto) (0-0.5) K/uL Baso # (Auto) (0-0.2) K/uL Immature Gran # (Auto) (0.00-0.02) K/uL POC Glucose 84 (70-99) mg/dl COVID-19 Eval Order SARS-CoV-2, RNA, NAAT (NEGATIVE) Blood Type O Positive Antibody Screen NEGATIVE 12/29/20 12/30/20 12/30/20 Range/Units 20:46 03:51 06:09 WBC 9.28 (4.8-10.8) K/uL RBC 3.75 L (4.2-5.4) M/uL Hgb 11.1 L (12.0-16.0) g/dL Hct 32.0 L (37-47) % MCV 85.3 (80-100) fL MCH 29.6 (25-34) pg MCHC 34.7 (32-36) g/dL RDW Std Deviation 42.0 (36.4-46.3) fL RDW Coeff of Paulino 13.4 (11.5-14.5) % Plt Count 198 (130-400) K/uL MPV 11.3 H (7.4-10.4) fL Immature Gran % (Auto) 0.2 % Neut % (Auto) 75.2 % Lymph % (Auto) 18.5 % [place] % (Auto) 5.7 % Eos % (Auto) 0.3 % Baso % (Auto) 0.1 % Neut # (Auto) 6.97 H (1.4-6.5) K/uL Lymph # (Auto) 1.72 (1.2-3.4) K/uL [place] # (Auto) 0.53 (0.11-0.59) K/uL Eos # (Auto) 0.03 (0-0.5) K/uL Baso # (Auto) 0.01 (0-0.2) K/uL Immature Gran # (Auto) 0.02 (0.00-0.02) K/uL POC Glucose 105 H 105 H (70-99) mg/dl COVID-19 Eval Order SARS-CoV-2, RNA, NAAT (NEGATIVE) Blood Type Antibody Screen Intake & Output 12/29/20 12/30/20 12/30/20 22:59 06:59 14:59 Intake Total 962.5 / 962.5 Output Total 100 / 650 550 / 650 Balance -100 / 312.5 412.5 / 312.5 Weight 137.892 kg Intake: IV 962.5 / 962.5 Oxytocin 20 units In Lactated 962.5 / 962.5 Ringer's 1,000 ml @ 125 mls/hr IV .Q8H1M [facility] Rx#:[id number] Output: Urine 100 / 100 Urine Amount (Catheter) 550 / 550 Peck/Indwelling 550 / 550 PE: General: Alert, orientedx3, NAD CVS: S1S2 RRR Lungs; CTAB Abd: soft, NT, ND, BS+, fundus firm, below Umbilicus Incision/ Dressing: Clean, dry, intact Perineum intact, Lochia rubra minimal Ext; NT, trace edema, SCD's on AP: 25 yo s/p RC Section, pod# 1 VSS Afebrile doing well Continue routine postop care Encourage ambulation, PO intake All questions were answered Results & Data ([facility]) Vital Signs (Past 12 Hours) Vital Signs Temp Pulse Pulse Resp BP BP Pulse Ox 12/30/20 06:00 18 99 12/30/20 05:00 18 99 12/30/20 04:00 36.6 C 74 18 117/76 100 12/30/20 03:00 18 100 12/30/20 02:00 20 100 12/30/20 01:30 76 18 122/74 100 12/30/20 00:59 20 100 12/30/20 00:00 18 99 12/29/20 23:40 36.4 C L 94 H 18 120/76 97 12/29/20 22:57 88 142/75 H 97 12/29/20 22:51 79 96 12/29/20 22:50 18 12/29/20 22:46 90 89 L 12/29/20 22:42 85 153/76 H 12/29/20 22:41 84 97 12/29/20 22:34 100 H 93 12/29/20 22:32 85 L 12/29/20 22:28 86 93 12/29/20 22:27 79 150/72 H 12/29/20 22:20 18 12/29/20 22:18 89 100 12/29/20 22:13 88 162/94 H 89 L 12/29/20 22:08 92 H 93 12/29/20 22:06 105 H 89 L 12/29/20 22:03 96 H 86 L 12/29/20 22:00 85 86 L 12/29/20 21:58 79 95 12/29/20 21:53 81 92 12/29/20 21:51 85 89 L 12/29/20 21:50 36.6 C 77 18 140/70 12/29/20 21:48 85 92 12/29/20 21:43 89 94 12/29/20 21:40 80 18 141/71 H 12/29/20 21:38 77 94 12/29/20 21:33 84 94 12/29/20 21:30 85 18 138/74 12/29/20 21:28 93 H 89 L 12/29/20 21:23 89 97 12/29/20 21:20 102 H 137/80 12/29/20 21:18 88 96 12/29/20 21:16 86 92 12/29/20 21:13 89 96 12/29/20 21:10 90 18 136/80 12/29/20 21:08 97 H 98 12/29/20 21:03 94 H 98 12/29/20 21:01 96 H 135/77 12/29/20 21:00 18 12/29/20 20:58 96 H 96 12/29/20 20:53 77 96 12/29/20 20:52 82 93 12/29/20 20:50 36.4 C L 94 H 18 143/79 H 12/29/20 20:48 93 H 96 12/29/20 20:47 87 136/75 12/29/20 20:44 90 135/79 12/29/20 20:43 94 H 96
[2020-12-30] MEDS ORDERED: DC INTRASPINAL MORPHINE ONE (11:55)
[2020-12-30] MEDS ORDERED: diphenhydrAMINE Capsule 25 MG CAP PO PRN (11:56)
[2020-12-30] MEDS ORDERED: MEPERIDINE HCL 50 MG/ML CARP IV PRN (11:56)
[2020-12-30] MEDS ORDERED: PROMETHAZINE HCL 25 MG in SODIUM CHLORIDE 0.9% 50 ML IV PRN (11:56)
[2020-12-30] MEDS ORDERED: KETOROLAC 30 MG/ML VIAL IV PRN (11:56)
[2020-12-30] MEDS ORDERED: ZOLPIDEM TARTRATE 5 MG TAB PO PRN (11:56)
[2020-12-30] MEDS ORDERED: ONDANSETRON INJ 2 MG/ML 2 ML VIAL IV PRN (11:56)
[2020-12-30] MEDS ORDERED: diphenhydrAMINE 50 MG/ML VIAL IV PRN (11:56)
[2020-12-30] MEDS: oxyCODONE/ACETAMINOPHEN 5mg/325mg TAB PO PRN ×3 (12:38→21:04)
[2020-12-30] MEDS: hydrOXYzine HCl 25 MG TAB PO PRN (16:33)
[2020-12-30] MEDS: IBUPROFEN 600 MG TAB PO PRN ×2 (16:33→21:03)
[2020-12-30] MEDS ORDERED: bisacodyL 5 MG TABEC PO SCH (20:00)
[2020-12-31] MEDS: oxyCODONE/ACETAMINOPHEN 5mg/325mg TAB PO PRN ×5 (00:53→20:17)
[2020-12-31] MEDS: IBUPROFEN 600 MG TAB PO PRN ×5 (00:53→20:16)
[2020-12-31 06:29] LABS: Hematocrit (blood only) 30.4 % (37-47); Hemoglobin 10.3 g/dL (12.0-16.0)
--- NOTE | 2020-12-31 07:03 | Obstetrical Progress Note ---
Date of Service December 31, 2020 Assessment & Plan Admission and Anticipated Discharge Date Admission Date: December 29, 2020 Subjective Patient is seen and examined. She feels well, no complaints. Pain is under control with oral meds. Ambulating without dizziness Voiding without difficulty Tolerating regular diet with out N&V Flatus + BM neg Bleeding is minimal No fever/ chills/ CP/ SOB/ N&V/ Leg pain Baby is in NICU, Bria, doing well, formula fed Vital Signs Temp Pulse Resp BP Pulse Ox 12/31/20 00:35 36.7 C 82 18 105/72 97 12/30/20 20:30 36.5 C 88 20 111/68 97 Lab Results 12/29/20 12/29/20 12/29/20 Range/Units 15:26 17:46 17:46 WBC (4.8-10.8) K/uL RBC (4.2-5.4) M/uL Hgb (12.0-16.0) g/dL Hct (37-47) % MCV (80-100) fL MCH (25-34) pg MCHC (32-36) g/dL RDW Std Deviation (36.4-46.3) fL RDW Coeff of Paulino (11.5-14.5) % Plt Count (130-400) K/uL MPV (7.4-10.4) fL Immature Gran % (Auto) % Neut % (Auto) % Lymph % (Auto) % [place] % (Auto) % Eos % (Auto) % Baso % (Auto) % Neut # (Auto) (1.4-6.5) K/uL Lymph # (Auto) (1.2-3.4) K/uL [place] # (Auto) (0.11-0.59) K/uL Eos # (Auto) (0-0.5) K/uL Baso # (Auto) (0-0.2) K/uL Immature Gran # (Auto) (0.00-0.02) K/uL POC Glucose 80 (70-99) mg/dl COVID-19 Eval [facility] SARS-CoV-2, RNA, NAAT NEGATIVE (NEGATIVE) Blood Type Antibody Screen 12/29/20 12/29/20 12/29/20 Range/Units 18:05 18:05 19:00 WBC 10.95 H (4.8-10.8) K/uL RBC 4.37 (4.2-5.4) M/uL Hgb 12.7 (12.0-16.0) g/dL Hct 36.9 L (37-47) % MCV 84.4 (80-100) fL MCH 29.1 (25-34) pg MCHC 34.4 (32-36) g/dL RDW Std Deviation 40.9 (36.4-46.3) fL RDW Coeff of Paulino 13.5 (11.5-14.5) % Plt Count 231 (130-400) K/uL MPV 11.7 H (7.4-10.4) fL Immature Gran % (Auto) % Neut % (Auto) % Lymph % (Auto) % [place] % (Auto) % Eos % (Auto) % Baso % (Auto) % Neut # (Auto) (1.4-6.5) K/uL Lymph # (Auto) (1.2-3.4) K/uL [place] # (Auto) (0.11-0.59) K/uL Eos # (Auto) (0-0.5) K/uL Baso # (Auto) (0-0.2) K/uL Immature Gran # (Auto) (0.00-0.02) K/uL POC Glucose 84 (70-99) mg/dl COVID-19 Eval Order SARS-CoV-2, RNA, NAAT (NEGATIVE) Blood Type O Positive Antibody Screen NEGATIVE 12/29/20 12/30/20 12/30/20 Range/Units 20:46 03:51 06:09 WBC 9.28 (4.8-10.8) K/uL RBC 3.75 L (4.2-5.4) M/uL Hgb 11.1 L (12.0-16.0) g/dL Hct 32.0 L (37-47) % MCV 85.3 (80-100) fL MCH 29.6 (25-34) pg MCHC 34.7 (32-36) g/dL RDW Std Deviation 42.0 (36.4-46.3) fL RDW Coeff of Paulino 13.4 (11.5-14.5) % Plt Count 198 (130-400) K/uL MPV 11.3 H (7.4-10.4) fL Immature Gran % (Auto) 0.2 % Neut % (Auto) 75.2 % Lymph % (Auto) 18.5 % [place] % (Auto) 5.7 % Eos % (Auto) 0.3 % Baso % (Auto) 0.1 % Neut # (Auto) 6.97 H (1.4-6.5) K/uL Lymph # (Auto) 1.72 (1.2-3.4) K/uL [place] # (Auto) 0.53 (0.11-0.59) K/uL Eos # (Auto) 0.03 (0-0.5) K/uL Baso # (Auto) 0.01 (0-0.2) K/uL Immature Gran # (Auto) 0.02 (0.00-0.02) K/uL POC Glucose 105 H 105 H (70-99) mg/dl COVID-19 Eval Order SARS-CoV-2, RNA, NAAT (NEGATIVE) Blood Type Antibody Screen 12/31/20 Range/Units 06:18 WBC (4.8-10.8) K/uL RBC (4.2-5.4) M/uL Hgb 10.3 L (12.0-16.0) g/dL Hct 30.4 L (37-47) % MCV (80-100) fL MCH (25-34) pg MCHC (32-36) g/dL RDW Std Deviation (36.4-46.3) fL RDW Coeff of Paulino (11.5-14.5) % Plt Count (130-400) K/uL MPV (7.4-10.4) fL Immature Gran % (Auto) % Neut % (Auto) % Lymph % (Auto) % [place] % (Auto) % Eos % (Auto) % Baso % (Auto) % Neut # (Auto) (1.4-6.5) K/uL Lymph # (Auto) (1.2-3.4) K/uL [place] # (Auto) (0.11-0.59) K/uL Eos # (Auto) (0-0.5) K/uL Baso # (Auto) (0-0.2) K/uL Immature Gran # (Auto) (0.00-0.02) K/uL POC Glucose (70-99) mg/dl COVID-19 Eval Order SARS-CoV-2, RNA, NAAT (NEGATIVE) Blood Type Antibody Screen PE: General: Alert, orientedx3, NAD CVS: S1S2 RRR Lungs; CTAB Abd: soft, NT, ND, BS+, fundus firm, below Umbilicus Incision/ Dressing: Clean, dry, intact Perineum intact, Lochia rubra minimal Ext; NT, no edema AP: 25 yo s/p C Section, pod# 2 VSS Afebrile doing well Continue routine postop care Encourage ambulation, PO intake All questions were answered Desires D/C tomorrow Results & Data ([facility]) Vital Signs (Past 12 Hours) Vital Signs Temp Pulse Resp BP Pulse Ox 12/31/20 00:35 36.7 C 82 18 105/72 97 12/30/20 20:30 36.5 C 88 20 111/68 97
[2020-12-31] MEDS: SIMETHICONE 80 MG CHEW PO SCH ×4 (07:32→20:12)
[2020-12-31] MEDS: PRENATAL VITAMIN 1 TAB PO SCH (07:32)
[2020-12-31] MEDS: FERROUS SULFATE 325 MG TAB PO SCH ×3 (07:32→11:45)
[2020-12-31] MEDS: DOCUSATE SODIUM 100 MG CAP PO SCH ×2 (07:32→20:12)
[2020-12-31] MEDS: LEVOTHYROXINE SODIUM 75 MCG TABLET PO SCH (07:33)
[2020-12-31] MEDS ORDERED: Nursing to Pharmacy Communication SCH (08:00)
[2020-12-31] MEDS: hydrOXYzine HCl 25 MG TAB PO PRN (17:01)
[2020-12-31] MEDS ORDERED: bisacodyL 10 MG SUPP PR PRN (20:36)
[2021-01-01] MEDS: oxyCODONE/ACETAMINOPHEN 5mg/325mg TAB PO PRN ×3 (00:15→11:54)
[2021-01-01] MEDS: IBUPROFEN 600 MG TAB PO PRN ×3 (00:15→11:54)
[2021-01-01] MEDS: LEVOTHYROXINE SODIUM 75 MCG TABLET PO SCH (06:19)
[2021-01-01] MEDS: PRENATAL VITAMIN 1 TAB PO SCH (08:19)
[2021-01-01] MEDS: DOCUSATE SODIUM 100 MG CAP PO SCH (08:19)
[2021-01-01] MEDS: SIMETHICONE 80 MG CHEW PO SCH ×2 (08:20→11:53)
--- NOTE | 2021-01-01 10:16 | Obstetrical Progress Note ---
Date of Service January 01, 2021 Assessment & Plan (1) delivery delivered: c/sec day #2 pt doing well d/c home with instructions Results & Data ([facility]) Vital Signs (Past 12 Hours) Vital Signs Temp Pulse Resp BP Pulse Ox 01/01/21 07:30 36.8 C 78 16 129/84 12/31/20 23:17 36.7 C 78 16 119/81 98
[2021-01-01] MEDS: FERROUS SULFATE 325 MG TAB PO SCH (11:54)
--- NOTE | 2021-01-05 10:43 | Discharge Summary (DS) ---
DATE OF ADMISSION: 12/29/2020 DATE OF DISCHARGE: 01/01/2021 HOSPITAL COURSE: She is a 3, para 3. Blood type is O positive, group B strep negative. He r due date is 01/23/2021. She called stating she felt she was in labor. We admitted her. We observ ed her for several hours. We gave her a fluid bolus, but after hours of observation, she had a regul ar contraction pattern and she was rating the pain on the contractions about a 7-8/10 and this was co mpared to about 2 when she came in. She was diagnosed as being in labor and she was taken to the OR w here she underwent repeat low segment section. Procedure was done without difficulty. She received prophylactic antibiotics. Her preoperative hemoglobin was 12.7. Postoperatively, hemoglobi n fell to 10.3. She remained afebrile throughout her whole postoperative course. Within 24 hours, h er bowel sounds returned, she was ambulating well, eating well and on her third postoperative day, nina baumann was discharged to be followed in the home and office and to return to [facility] for removal o f yovanny. Job ID: [id number]
== END 2021-01-01 13:50 | disposition home or self-care (01) | DRG 788 ==
LOC: OPB 13:53 → 4S1 13:54 → 4S2 12-30 00:17